=== PATIENT | male | born 1955 | race Caucasian/White ===

== ENCOUNTER → 2017-01-04 | Day surgery (SDC) | payer OTHER ==
[~2017-01-04] MED LIST: AMLO5TAB22 PO; ASPI81TA82 PO; ATOR40TA PO; LACTATED RINGER'S 1000 ML INJ 1,000 ML ONE; METO25 PO; PROPOFOL 500 MG/50 ML BTL IV ONE
--- NOTE | 2017-01-04 09:54 | GIPROC ---
[facility] [address] [place], [address] COLONOSCOPY PROCEDURE REPORT EXAM DATE: 01/04/2017 PATIENT NAME: Vaughn Zuniga MR #: [id number] BIRTHDATE: 1955 ENDOSCOPIST: Ramonita Adair MD ORDER #: [id number] BREAK AND LOAD OPERATOR: Lynette Rocha RN STATUS: outpatient INDICATIONS: The patient is a 61 yr old male here for a colonoscopy due to high risk patient with personal history of colonic polyps PROCEDURE PERFORMED: Colonoscopy with biopsy MEDICATIONS: None and Per Anesthesia. PREP QUALITY: good PREP TYPE:Other: ESTIMATED BLOOD LOSS: None CONSENT: The patient understands the risks and benefits of the procedure and understands that these risks include, but are not limited to: sedation, allergic reaction, infection, perforation and/or bleeding. Alternative means of evaluation and treatment include, among others: physical exam, x-rays, and/or surgical intervention. The patient elects to proceed with this endoscopic procedure. medical equipment was checked for proper function. Hand hygiene and appropriate measures for infection prevention was taken. After the risks, benefits and alternatives of the procedure were thoroughly explained, Informed consent was verified, confirmed and timeout was successfully executed by the treatment team. A digital exam was performed, revealed internal hemorrhoids, and revealed an anal fissure-old, not active . The EC-[id number] ([id number]) endoscope was introduced through the anus and advanced to the cecum, which was identified by both the appendix and ileocecal valve. The instrument was then slowly withdrawn as the colon was fully examined. COLON FINDINGS: Prominent IC valve-biopsy diverticulosis sigmoid,descending internal hemorrhoids, fibrosed. Retroflexed views revealed internal hemorrhoids and Retroflexed views revealed medium internal hemorrhoids The scope was then completely withdrawn from the patient and the procedure terminated. PROCEDURE WITHDRAWAL TIME:6minutes ADVERSE EVENTS: There were no complications. IMPRESSIONS: 1. Prominent IC valve-biopsy diverticulosis sigmoid,descending internal hemorrhoids, fibrosed 2. Retroflexed views revealed internal hemorrhoids 3. Retroflexed views revealed medium internal hemorrhoids 4. Was performed 5. Revealed internal hemorrhoids-fibrosed 6. Revealed an anal fissure -old , not active RECOMMENDATIONS: 1. Await biopsy results. Biopsy results will not be ready for 7-10 days. If you don't hear from us in two weeks, call our office for results. 2. Benefiber 2 tsp daily 3. Probiotics from any [employer] or health food store 4. Yearly rectal exams 5. colorectal surgery evalutionnif desired for removal of fibrosed hemorrhoids RECALL: Return 3 years Colonoscopy Ramonita dAair MD eSigned: Ramonita Adair MD 01/04/2017 9:54 AM cc: Odalys Mon [facility] PATIENT NAME: Vaughn Zuniga MR#: [id number]
== END | disposition home or self-care (01) ==
LOC: ESDC 07:20
PROVIDERS: ATTEND Internal Medicine Gastroenterology
DX: Z12.11 Encounter for screening for malignant neoplasm of colon (principal); Z86.010 Personal history of colon polyps; K57.90 Diverticulosis of intestine, part unspecified, without perforation or abscess without bleeding; K64.8 Other hemorrhoids
CPT/HCPCS: 00810; 45380; 88305; J7120

== ENCOUNTER 2017-07-23 13:53 | Observation (INO) | payer OTHER ==
[2017-07-23] VITALS (10 sets, daily range): BP systolic 104–163; BP diastolic 70–88; PULSE 68–88; RESP 15–20; TEMP 98–98.5; O2SAT 94–100
[~2017-07-23] VITALS: Ht 180.3 cm; Wt 100.0 kg
[~2017-07-23 13:53] MED LIST changes: -LACTATED RINGER'S 1000 ML INJ 1,000 ML ONE; -PROPOFOL 500 MG/50 ML BTL IV ONE
[2017-07-23] MEDS ORDERED: SODIUM CHLORID 0.9% 500 ML INJ 500 ML IV ONE (14:15)
[2017-07-23] MEDS ORDERED: NITROGLYCERIN 2% OINT 1 GM PACKET TOP ONE (14:15)
[2017-07-23] MEDS ORDERED: SODIUM CHLORIDE 0.9% FLUSH 10 ML FLUSH IVF PRN (14:15)
[2017-07-23] MEDS ORDERED: METO25TA3 PO (14:19)
[2017-07-23] MEDS ORDERED: ASPI-516 CHEW (14:19)
[2017-07-23] MEDS ORDERED: ATOR40TA16 PO (14:19)
[2017-07-23] MEDS ORDERED: AMLO5TAB2 PO (14:19)
--- NOTE | 2017-07-23 14:31 | PD ---
HPI Chief Complaint: Chest Pain Time Seen by Provider: 14:02 Travel History International Travel<30 days: No Contact w/Intl Traveler<30days: No Traveled to known affect area: No History of Present Illness HPI The patient is a 61-year-old male who presents to the emergency department for chest pain. The patient states he developed chest discomfort 3 days ago described as tightness that is across the chest and radiates to the shoulders bilaterally. He also complains of some numbness to left upper extremity. The symptoms are moderate, worse with exertion, slightly alleviated at rest. He does have a history of coronary artery disease with previous stent placement in [place] as well as hypertension and hyperlipidemia. He denies any tobacco use currently, was smoking 1 cigar per week several years ago. He has a significant family history for heart disease in the family. 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 James. The chest pain is moderate, described as tightness, and radiates the shoulders bilaterally with numbness going down the left arm. He does note exertional symptoms, however, denies any diaphoresis, nausea, or vomiting. PFSH Past Medical History Blood Disorders: No Heart Rhythm Problems: No Cancer: No Cardiac Catheterization: Yes Cardiovascular Problems: Yes (X 1 STENT) High Cholesterol: Yes Congestive Heart Failure: No Coronary Artery Disease: Yes Diabetes: No Diminished Hearing: No Endocrine: No Genitourinary: No Hypertension: Yes Immune Disorder: No Musculoskeletal: No Neurologic: No Psychiatric: No Reproductive: No Respiratory: No Tetanus Vaccination: Never Vaccinated Influenza Vaccination: No Past Surgical History Coronary Artery Bypass Graft: No Coronary Stent: Yes (x1) Tonsillectomy: Yes Other Surgery: Yes (tonsils removed as a child) Family History Family Myocardial Infarction: Yes Social History Alcohol Use: Yes (daily 2-3 scotch, last night ) Tobacco Use: Yes (1 cigar a week ) Substance Use: No Allergies-Medications (Allergen,Severity, Reaction): Coded Allergies: No Known Allergies (Unverified , 01/21/15) Reported Meds & Prescriptions Reported Meds & Active Scripts Active Reported Atorvastatin (Atorvastatin Calcium) 40 Mg Tab 40 Mg PO HS Amlodipine (Amlodipine Besylate) 5 Mg Tab 5 Mg PO DAILY Aspirin 81 Mg Chew 81 Mg CHEW DAILY Metoprolol Tartrate 25 Mg Tab 25 Mg PO BID Review of Systems Except as stated in HPI: all other systems reviewed are Neg HENT: No: Lightheadedness Cardiovascular: Positive: Chest Pain or Discomfort, Dyspnea on exertion, No: Diaphoresis Respiratory: No: Shortness of Breath Gastrointestinal: No: Nausea, Vomiting, Abdominal Pain Musculoskeletal: No: Weakness Neurologic: No: Dizziness, Focal Abnormalities Physical Exam Narrative GENERAL: Awake, alert, pleasant 61-year-old male who appears his stated age and is in no acute respiratory distress. SKIN: Focused skin assessment warm/dry. HEAD: Atraumatic. Normocephalic. EYES: Pupils equal and round. No scleral icterus. No injection or drainage. ENT: No nasal bleeding or discharge. Mucous membranes pink and moist. NECK: Trachea midline. No JVD. CARDIOVASCULAR: Regular rate and rhythm. No murmur appreciated. RESPIRATORY: No accessory muscle use. Clear to auscultation. Breath sounds equal bilaterally. GASTROINTESTINAL: Abdomen soft, non-tender, nondistended. No rebound tenderness. MUSCULOSKELETAL: No obvious deformities. No clubbing. No cyanosis. No edema. NEUROLOGICAL: Awake and alert. No obvious cranial nerve deficits. Motor grossly within normal limits. Normal speech. Nonfocal. PSYCHIATRIC: Appropriate mood and affect; insight and judgment normal. Data Data Last Documented VS Vital Signs Date Time Temp Pulse Resp B/P (MAP) Pulse Ox O2 Delivery O2 Flow Rate FiO2 07/23/17 14:22 97 Nasal Cannula 2.00 07/23/17 14:19 141/83 (102) 07/23/17 14:19 77 15 07/23/17 13:58 98.0 Orders Orders Electrocardiogram (07/23/17 14:10) Ckmb (Isoenzyme) Profile (07/23/17 14:10) Complete Blood Count With Diff (07/23/17 14:10) Comprehensive Metabolic Panel (07/23/17 14:10) Magnesium (Mg) (07/23/17 14:10) Prothrombin Time / Inr (Pt) (07/23/17 14:10) Act Partial Throm Time (Ptt) (07/23/17 14:10) Troponin I (07/23/17 14:10) Chest, Single Ap (07/23/17 14:10) Ecg Monitoring (07/23/17 14:10) Bilateral Bp Monitoring (07/23/17 14:10) Iv Access Insert/Monitor (07/23/17 14:10) Oximetry (07/23/17 14:10) Oxygen Administration (07/23/17 14:10) Nitroglycerin 2% Oint (Nitroglycerin 2% (07/23/17 14:15) Sodium Chloride 0.9% Flush (Ns Flush) (07/23/17 14:15) Sodium Chlorid 0.9% 500 Ml Inj (Ns 500 M (07/23/17 14:15) Admit Order (Ed Use Only) (07/23/17 15:59) Labs Laboratory Tests Test 07/23/17 14:30 White Blood Count 6.3 TH/MM3 Red Blood Count 4.77 MIL/MM3 Hemoglobin 15.7 GM/DL Hematocrit 44.7 % Mean Corpuscular Volume 93.8 FL Mean Corpuscular Hemoglobin 33.0 PG Mean Corpuscular Hemoglobin Concent 35.2 % Red Cell Distribution Width 13.2 % Platelet Count 114 TH/MM3 Mean Platelet Volume 10.2 FL Neutrophils (%) (Auto) 54.4 % Lymphocytes (%) (Auto) 31.2 % Monocytes (%) (Auto) 11.0 % Eosinophils (%) (Auto) 2.4 % Basophils (%) (Auto) 1.0 % Neutrophils # (Auto) 3.4 TH/MM3 Lymphocytes # (Auto) 2.0 TH/MM3 Monocytes # (Auto) 0.7 TH/MM3 Eosinophils # (Auto) 0.2 TH/MM3 Basophils # (Auto) 0.1 TH/MM3 CBC Comment DIFF FINAL Differential Comment Prothrombin Time 10.4 SEC Prothromb Time International Ratio 1.0 RATIO Activated Partial Thromboplast Time 23.4 SEC Blood Urea Nitrogen 10 MG/DL Creatinine 0.67 MG/DL Random Glucose 111 MG/DL Total Protein 7.6 GM/DL Albumin 3.8 GM/DL Calcium Level 8.9 MG/DL Magnesium Level 1.6 MG/DL Alkaline Phosphatase 61 U/L Aspartate Amino Transf (AST/SGOT) 88 U/L Alanine Aminotransferase (ALT/SGPT) 87 U/L Total Bilirubin 0.7 MG/DL Sodium Level 139 MEQ/L Potassium Level 3.6 MEQ/L Chloride Level 103 MEQ/L Carbon Dioxide Level 24.7 MEQ/L Anion Gap 11 MEQ/L Estimat Glomerular Filtration Rate 120 ML/MIN Total Creatine Kinase 65 U/L Troponin I LESS THAN 0.02 NG/ML MDM Medical Decision Making Medical Screen Exam Complete: Yes Emergency Medical Condition: Yes Medical Record Reviewed: Yes Interpretation(s) EKG reveals normal sinus rhythm with a rate of 76. Left axis deviation. Laboratory Tests Test 07/23/17 14:30 White Blood Count 6.3 TH/MM3 Red Blood Count 4.77 MIL/MM3 Hemoglobin 15.7 GM/DL Hematocrit 44.7 % Mean Corpuscular Volume 93.8 FL Mean Corpuscular Hemoglobin 33.0 PG Mean Corpuscular Hemoglobin Concent 35.2 % Red Cell Distribution Width 13.2 % Platelet Count 114 TH/MM3 Mean Platelet Volume 10.2 FL Neutrophils (%) (Auto) 54.4 % Lymphocytes (%) (Auto) 31.2 % Monocytes (%) (Auto) 11.0 % Eosinophils (%) (Auto) 2.4 % Basophils (%) (Auto) 1.0 % Neutrophils # (Auto) 3.4 TH/MM3 Lymphocytes # (Auto) 2.0 TH/MM3 Monocytes # (Auto) 0.7 TH/MM3 Eosinophils # (Auto) 0.2 TH/MM3 Basophils # (Auto) 0.1 TH/MM3 CBC Comment DIFF FINAL Differential Comment Prothrombin Time 10.4 SEC Prothromb Time International Ratio 1.0 RATIO Activated Partial Thromboplast Time 23.4 SEC Blood Urea Nitrogen 10 MG/DL Creatinine 0.67 MG/DL Random Glucose 111 MG/DL Total Protein 7.6 GM/DL Albumin 3.8 GM/DL Calcium Level 8.9 MG/DL Magnesium Level 1.6 MG/DL Alkaline Phosphatase 61 U/L Aspartate Amino Transf (AST/SGOT) 88 U/L Alanine Aminotransferase (ALT/SGPT) 87 U/L Total Bilirubin 0.7 MG/DL Sodium Level 139 MEQ/L Potassium Level 3.6 MEQ/L Chloride Level 103 MEQ/L Carbon Dioxide Level 24.7 MEQ/L Anion Gap 11 MEQ/L Estimat Glomerular Filtration Rate 120 ML/MIN Total Creatine Kinase 65 U/L Troponin I LESS THAN 0.02 NG/ML Last Impressions Chest X-Ray 07/23/17 1410 Signed Impressions: Service Date/Time: Sunday, July 23, 2017 14:18 - CONCLUSION: No acute disease. Janusz Lucio MD Differential Diagnosis Differential diagnosis includes acute coronary syndrome, deconditioning, cardiomyopathy, STEMI, GERD, esophageal spasm, pancreatitis. Narrative Course IV was established, labs are drawn and sent, and the patient was placed on cardiac telemetry monitoring and continuous pulse oximetry monitoring. EKG was ordered and interpreted. The patient already took aspirin at home, nitroglycerin ointment was applied to the chest wall. Chest x-ray was obtained. Chest x-ray is unremarkable. The patient's initial troponin is negative. The patient does have multiple risk factors including hypertension, hyperlipidemia, and CAD with previous stent placement. Therefore, patient will be a 23 hour observation to the chest pain center. The last nuclear medicine myocardial perfusion scan I can find was performed on January 22, 2015, negative , low risk, with the EF of 70% percent. However, patient does have increase in exertional symptoms and multiple risk factors, therefore, will be a 23 hour observation to chest pain center under Dr. Copeland. Patient is comfortable with this plan of care and disposition. Physician Communication Physician Communication The patient will be a 23 hour observation to the chest pain center for serial cardiac enzymes and further evaluation by cardiology. Diagnosis Primary Impression: Chest pain Qualified Codes: R07.9 - Chest pain, unspecified Admitting Information Admitting Physician Requests: Observation Condition: Stable Boogie Batista MD Jul 23, 2017 14:31
[2017-07-23 14:44] LABS: AUTOMATED NEUTROPHIL # 3.4 TH/MM3 (1.8-7.7); BASOPHIL # 0.1 TH/MM3 (0-0.2); EOSINOPHIL # 0.2 TH/MM3 (0-0.4); EOSINOPHIL % 2.4 % (0.0-4.0); HEMATOCRIT 44.7 % (39.0-51.0); HEMOGLOBIN 15.7 GM/DL (13.0-17.0); LYMPH % 31.2 % (9.0-44.0); MEAN CELL VOLUME 93.8 FL (80.0-100.0); MEAN CORPUSCULAR HGB CONC 35.2 % (32.0-36.0); MEAN PLATELET VOLUME 10.2 FL (7.0-11.0); MONOCYTE # 0.7 TH/MM3 (0-0.9); NEUT % 54.4 % (16.0-70.0); PLATELET COUNT 114 TH/MM3 (150-450); RED BLOOD COUNT 4.77 MIL/MM3 (4.50-5.90); RED CELL DISTRIBUTION WIDTH 13.2 % (11.6-17.2); WHITE BLOOD COUNT 6.3 TH/MM3 (4.0-11.0)
[2017-07-23 14:52] LABS: PROTHROMBIN TIME - PATIENT 10.4 SEC (9.8-11.6)
--- NOTE | 2017-07-23 14:54 | RADRPT ---
EXAM DATE/TIME: 07/23/2017 14:18 [place] COMPARISON: CHEST SINGLE AP, January 21, 2015, 21:17. INDICATIONS : Chest tightness. MEDICAL HISTORY : None. SURGICAL HISTORY : Cardiac stent. ENCOUNTER: Initial ACUITY: 1 day PAIN SCORE: 0/10 LOCATION: Chest, midline. FINDINGS: A single view of the chest demonstrates the lungs to be symmetrically aerated without evidence of mas s, infiltrate or effusion. The cardiomediastinal contours are unremarkable. Osseous structures are intact. CONCLUSION: No acute disease. Janusz Lucio MD on July 23, 2017 at 14:52 Board Certified Radiologist. This report was verified electronically.
[2017-07-23 15:06] LABS: ALBUMIN 3.8 GM/DL (3.4-5.0); AST (GOT) 88 U/L (15-37); BICARBONATE 24.7 MEQ/L (21.0-32.0); BLOOD UREA NITROGEN 10 MG/DL (7-18); CALCIUM 8.9 MG/DL (8.5-10.1); CHLORIDE 103 MEQ/L (98-107); CREATININE 0.67 MG/DL (0.60-1.30); GLOMERULAR FILTRATION RATE 120 ML/MIN (>89); GLUCOSE,RANDOM 111 MG/DL (74-106); MAGNESIUM 1.6 MG/DL (1.5-2.5); SODIUM (NA) 139 MEQ/L (136-145)
[2017-07-23 15:07] LABS: ALT (GPT) 87 U/L (12-78)
[2017-07-23 15:10] LABS: ALKALINE PHOSPHATASE 61 U/L (45-117); TOTAL BILIRUBIN ADULT 0.7 MG/DL (0.2-1.0); TOTAL PROTEIN 7.6 GM/DL (6.4-8.2); TROPONIN I LESS THAN 0.02 NG/ML (0.02-0.05)
[2017-07-23] MEDS ORDERED: IOHEXOL 350 MG/ML 100 ML BTL (for Cath Lab) OTHER ONE (16:04)
[2017-07-23] MEDS ORDERED: ACETAMINOPHEN 500 MG CPLT PO PRN (16:30)
[2017-07-23] MEDS ORDERED: ALPRAZolam 0.25 MG TAB PO PRN (16:30)
[2017-07-23] MEDS ORDERED: ONDANSETRON HCL 4 MG/2 ML VIAL IV PUSH PRN (16:30)
[2017-07-23] MEDS ORDERED: ACETAMINOPHEN/HYDROcodone 325 MG/7.5 MG TAB PO PRN (16:30)
--- NOTE | 2017-07-23 16:37 | HHI.HP ---
HPI Primary Care Physician Unknown Chief Complaint Chest pain History of Present Illness This is a 61-year-old male that presents to ED with history of CAD with a stent to the RCA in 2013 as well as having hypertension and hyperlipidemia that presents to ED for evaluation of chest discomfort. States that he has been having intermittent chest tightness across the chest for the past week. Has not found to be exertional related. States most strenuous thing he has done was some walking. Prior to yesterday and it happened 5 times over the past week each lasting about 10 minutes. He had no associated shortness of breath, nausea, or diaphoresis. Yesterday's discomfort began while he was at home watching television and was little bit more intense and lasted longer. States lasted about 30 minutes. He was not short of breath, nauseous, or diaphoretic. The discomfort recurred this morning, was more intense and lasted about an hour. The discomfort also radiated down the left arm. States these episodes of discomfort do not have symptoms similar to when eating the stent in 2013. He states that time he had a much more intense discomfort, he was short of breath, and he was diaphoretic. He has not had the symptoms recently. Currently denies discomfort in his chest. States he last saw his otr company driver about a year ago and had a 2D echo. Cannot recall having a stress test in the office. His last stress test here was in 2014 and was nonischemic. His last heart catheterization was at this hospital in 2013. The stent to the RCA was patent. There was about 25% proximal disease and 35% mid segment disease of the RCA. Left main, LAD, and circumflex were essentially normal. Review of Systems General: Patient denies fevers, chills, and recent travel. HEENT: Patient denies headache, sore throat, difficulty swallowing. Cardiovascular: Has the chest discomfort as mentioned above. Denies sensation of heart beating rapidly or irregularly. No syncope. Denies diaphoresis. Respiratory: Denies shortness of breath or inspirational chest discomfort. Denies coughing wheezing or hemoptysis. GI: Patient denies nausea, vomiting, diarrhea, abdominal pain, bloody stools. Musculoskeletal: Patient denies joint pain or edema. Denies calf pain or edema. Neurovascular: Patient denies numbness, tingling, weakness in extremities. Denies headache. Endocrine: Denies polyuria and polydipsia. Hematologic: Denies easy bruising. Skin: Denies rash or itching. Past Family Social History Allergies: Coded Allergies: No Known Allergies (Unverified , 01/21/15) Past Medical History CAD with stent of the RCA in 2013. Hypertension, hyperlipidemia. Denies diabetes. Tobacco abuse. Past Surgical History Cardiac catheterization with stenting of RCA in 2013. Left total knee replacement. Tonsillectomy. Reported Medications Reported Meds & Active Scripts Active Reported Atorvastatin (Atorvastatin Calcium) 40 Mg Tab 40 Mg PO HS Amlodipine (Amlodipine Besylate) 5 Mg Tab 5 Mg PO DAILY Aspirin 81 Mg Chew 81 Mg CHEW DAILY Metoprolol Tartrate 25 Mg Tab 25 Mg PO BID Active Ordered Medications Current Medications Medications (Trade) Dose Ordered Sig/Libby Route Start Time Stop Time Status Last Admin (NS Flush) 2 ml UNSCH PRN IVF 07/23/17 14:15 07/23/17 15:14 (Tylenol) 500 mg Q4H PRN PO 07/23/17 16:30 UNV ([place] 7.5-325 Mg) 1 tab Q4H PRN PO 07/23/17 16:30 UNV (Zofran Inj) 4 mg Q6H PRN IV PUSH 07/23/17 16:30 UNV Family History His father and brother had CAD. Social History Patient has been smoking about 1 cigar per week for the last 2 months, prior to that he would smoke 2-3 cigars per day for couple years. He quit smoking cigarettes 20-25 years ago. Prior to that he smoked 1 pack of cigarettes a day for 20 years. He has on average 2 drinks of scotch and soda at night and states he has so most of his adult life. Denies illicit drug use. 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 Physical Exam Vital Signs Vital Signs Date Time Temp Pulse Resp B/P (MAP) Pulse Ox O2 Delivery O2 Flow Rate FiO2 07/23/17 14:22 97 Nasal Cannula 2.00 07/23/17 14:19 141/83 (102) 07/23/17 14:19 77 15 141/83 (102) 07/23/17 14:13 79 15 141/80 (100) 97 Room Air 07/23/17 14:13 79 18 141/80 (100) 97 Room Air 07/23/17 13:58 98.0 88 16 163/88 (113) 100 Physical Exam GENERAL: This is a well-nourished, well-developed patient, in no apparent distress. Patient speaks in clear complete sentences. Patient is pleasant. HEENT: Head is atraumatic and normocephalic. Neck is supple without lymphadenopathy and trachea is midline. No JVD or carotid bruits. CARDIOVASCULAR: Regular rate and rhythm without murmurs, gallops, or rubs. RESPIRATORY: Clear to auscultation. Breath sounds equal bilaterally. No wheezes , rales, or rhonchi. Chest wall is nontender. No use of accessory muscles. GASTROINTESTINAL: Abdomen is nontender, nondistended. Abdomen soft. No obvious pulsatile mass or bruit. No CVA tenderness. Strong femoral pulses bilaterally. Normal bowel sounds in all quadrants. MUSCULOSKELETAL: Patient is moving upper and lower extremities freely. No calf tenderness or edema, no Homans sign. Strong pulses in upper and lower extremities. NEUROLOGICAL: Patient is alert and oriented. Cranial nerves 2-12 are grossly intact. No focal deficits and speech is clear. SKIN: No rash and turgor is normal. Laboratory Laboratory Tests Test 07/23/17 14:30 White Blood Count 6.3 Red Blood Count 4.77 Hemoglobin 15.7 Hematocrit 44.7 Mean Corpuscular Volume 93.8 Mean Corpuscular Hemoglobin 33.0 Mean Corpuscular Hemoglobin Concent 35.2 Red Cell Distribution Width 13.2 Platelet Count 114 Mean Platelet Volume 10.2 Neutrophils (%) (Auto) 54.4 Lymphocytes (%) (Auto) 31.2 Monocytes (%) (Auto) 11.0 Eosinophils (%) (Auto) 2.4 Basophils (%) (Auto) 1.0 Neutrophils # (Auto) 3.4 Lymphocytes # (Auto) 2.0 Monocytes # (Auto) 0.7 Eosinophils # (Auto) 0.2 Basophils # (Auto) 0.1 CBC Comment DIFF FINAL Differential Comment Prothrombin Time 10.4 Prothromb Time International Ratio 1.0 Activated Partial Thromboplast Time 23.4 Blood Urea Nitrogen 10 Creatinine 0.67 Random Glucose 111 Total Protein 7.6 Albumin 3.8 Calcium Level 8.9 Magnesium Level 1.6 Alkaline Phosphatase 61 Aspartate Amino Transf (AST/SGOT) 88 Alanine Aminotransferase (ALT/SGPT) 87 Total Bilirubin 0.7 Sodium Level 139 Potassium Level 3.6 Chloride Level 103 Carbon Dioxide Level 24.7 Anion Gap 11 Estimat Glomerular Filtration Rate 120 Total Creatine Kinase 65 Troponin I LESS THAN 0.02 Result Diagram: 07/23/17 1430 07/23/17 1430 Imaging Last 24 hours Impressions Chest X-Ray 07/23/17 1410 Signed Impressions: Service Date/Time: Sunday, July 23, 2017 14:18 - CONCLUSION: No acute disease. Janusz Lucio MD Course Initial EKG is sinus rhythm without significant ST segment depressions or elevations. Caprini VTE Risk Assessment Caprini VTE Risk Assessment: Mod/High Risk (score >= 2) Caprini Risk Assessment Model Point Value = 1 Point Value = 2 Point Value = 3 Point Value = 5 Age 41-60 Minor surgery BMI > 25 kg/m2 Swollen legs Varicose veins or History of unexplained or recurrent spontaneous Oral contraceptives or hormone replacement Sepsis (< 1 month) Serious lung disease, including pneumonia (< 1 month) Abnormal pulmonary function Acute myocardial infarction Congestive heart failure (< 1 month) History of inflammatory bowel disease Medical patient at bed rest Age 61-74 Arthroscopic surgery Major open surgery (> 45 min) Laparoscopic surgery (> 45 min) Malignancy Confined to bed (> 72 hours) Immobilizing plaster cast Central venous access Age >= 75 History of VTE Family history of VTE Factor V Leiden Prothrombin [id number] Lupus anticoagulant Anticardiolipin antibodies Elevated serum homocysteine Heparin-induced thrombocytopenia Other congenital or acquired thrombophilia Stroke (< 1 month) Elective arthroplasty Hip, pelvis, or leg fracture Acute spinal cord injury (< 1 month) Prophylaxis Regimen Total Risk Factor Score Risk Level Prophylaxis Regimen 0-1 Low Early ambulation 2 Moderate Order ONE of the following: *Sequential Compression Device (SCD) *Heparin 5000 units SQ BID 3-4 Higher Order ONE of the following medications: *Heparin 5000 units SQ TID *Enoxaparin/Lovenox 40 mg SQ daily (WT < 150 kg, CrCl > 30 mL/min) *Enoxaparin/Lovenox 30 mg SQ daily (WT < 150 kg, CrCl > 10-29 mL/min) *Enoxaparin/Lovenox 30 mg SQ BID (WT < 150 kg, CrCl > 30 mL/min) AND/OR *Sequential Compression Device (SCD) 5 or more Highest Order ONE of the following medications: *Heparin 5000 units SQ TID (Preferred with Epidurals) *Enoxaparin/Lovenox 40 mg SQ daily (WT < 150 kg, CrCl > 30 mL/min) *Enoxaparin/Lovenox 30 mg SQ daily (WT < 150 kg, CrCl > 10-29 mL/min) *Enoxaparin/Lovenox 30 mg SQ BID (WT < 150 kg, CrCl > 30 mL/min) AND *Sequential Compression Device (SCD) Assessment and Plan Assessment and Plan * Chest pain: Patient will continue to have serial cardiac enzymes and EKGs for ruling out purposes. He will be seen by Dr. Fercho Copeland of cardiology in the chest pain center in the morning. Likely to have a Lexiscan in the morning if he rules out. Patient would be discharged home if the stress test is nonischemic with instructions to follow-up with his otr company driver Dr. James, I was unable to speak with his otr company driver as he has not on-call this weekend. Patient should return to ED for interval issues. * CAD: We will likely reassess with stress testing. Patient to continues medications. * Hyperlipidemia: Patient's AST and ALT are mildly elevated. He would need to discuss this with his physician. He also drinks alcohol regularly and should discontinue alcohol use. Possibly transaminase will normalize however he will need to have this reassessed and if continues to elevate that may need to discuss statin therapy. * Elevated LFTs: Patient admits drinking alcohol regularly. Needs to discontinue alcohol abuse. He also is on statin therapy. Needs discuss this with his physician. * Hypertension: Continue medication. * Tobacco abuse: Patient has been counseled importance of no longer smoking a cigar. Patient is stable at this time. He is agreeable to this plan. Malik Linn Jul 23, 2017 16:37
[2017-07-23 18:30] LABS: TROPONIN I LESS THAN 0.02 NG/ML (0.02-0.05)
[2017-07-23] MEDS ORDERED: ATORVASTATIN 40 MG TAB PO SCH (21:00)
[2017-07-23] MEDS: METOPROLOL TARTRATE 25 MG TAB PO SCH (21:31)
[2017-07-23 23:51] LABS: TROPONIN I LESS THAN 0.02 NG/ML (0.02-0.05)
[2017-07-24 04:03] VITALS: BP 117/68; PULSE 67; RESP 17; TEMP 98.6; O2SAT 93
[2017-07-24 07:12] VITALS: PULSE 62
[2017-07-24 07:28] VITALS: BP 154/83; PULSE 69; RESP 16; TEMP 98; O2SAT 95
[2017-07-24] MEDS ORDERED: NITROGLYCERIN 0.4 MG SL 25 TABS/BTL SL ONE (07:31)
[2017-07-24 07:44] VITALS: O2SAT 96
--- NOTE | 2017-07-24 07:52 | PD.CARD.PN ---
Subjective Subjective Remarks Upon entering room, reporting fairly constant chest tightness with mild dyspnea. No associated symptoms nausea or diaphoresis. Objective Medications Current Medications Medications (Trade) Dose Ordered Sig/Libby Route Start Time Stop Time Status Last Admin (NS Flush) 2 ml UNSCH PRN IVF 07/23/17 14:15 07/23/17 15:14 (Tylenol) 500 mg Q4H PRN PO 07/23/17 16:30 (Plaza 7.5-325 Mg) 1 tab Q4H PRN PO 07/23/17 16:30 (Zofran Inj) 4 mg Q6H PRN IV PUSH 07/23/17 16:30 (Aspirin) 325 mg DAILY PO 07/24/17 09:00 (Xanax) 0.25 mg Q8H PRN PO 07/23/17 16:30 (Norvasc) 5 mg DAILY PO 07/24/17 09:00 (Lipitor) 40 mg HS PO 07/23/17 21:00 07/23/17 21:31 (Lopressor) 25 mg BID PO 07/23/17 21:00 07/23/17 21:31 Vital Signs / I&O Vital Signs Date Time Temp Pulse Resp B/P (MAP) Pulse Ox O2 Delivery O2 Flow Rate FiO2 07/24/17 07:44 96 21 07/24/17 07:28 98.0 69 16 154/83 (106) 95 07/24/17 07:12 62 07/24/17 04:03 98.6 67 17 117/68 (84) 93 07/23/17 23:16 98.2 76 17 122/82 (95) 94 07/23/17 20:25 98.5 76 17 142/70 (94) 97 07/23/17 18:26 74 07/23/17 18:09 98.1 76 20 135/74 (94) 100 07/23/17 17:41 68 15 99 Nasal Cannula 2.00 07/23/17 17:00 68 18 104/71 (82) 99 Nasal Cannula 2.00 07/23/17 16:00 74 17 130/77 (94) 99 Nasal Cannula 2.00 07/23/17 15:00 74 18 138/73 (94) 100 Nasal Cannula 2.00 07/23/17 14:22 97 Nasal Cannula 2.00 07/23/17 14:19 141/83 (102) 07/23/17 14:19 77 15 141/83 (102) 07/23/17 14:15 99 Nasal Cannula 2.00 07/23/17 14:13 79 15 141/80 (100) 97 Room Air 07/23/17 14:13 79 18 141/80 (100) 97 Room Air 07/23/17 13:58 98.0 88 16 163/88 (113) 100 Physical Exam GENERAL: Alert WN, WD, NAD, pleasant, male HEAD: NC, AT CV: RRR, without murmur, rub, gallop, no JVD, S1-S2 no S3-S4. RESP: Clear lungs throughout bilateral, no crackles, wheeze, rhonchi, symmetrical chest rise, nonlabored, able to speak in full sentences PSYCH: A+O x3, pleasant affect, appropriate speech, mood, insight and judgment SKIN: Normal turgor, normal texture Laboratory Laboratory Tests Test 07/23/17 14:30 07/23/17 17:30 07/23/17 23:00 White Blood Count 6.3 TH/MM3 Red Blood Count 4.77 MIL/MM3 Hemoglobin 15.7 GM/DL Hematocrit 44.7 % Mean Corpuscular Volume 93.8 FL Mean Corpuscular Hemoglobin 33.0 PG Mean Corpuscular Hemoglobin Concent 35.2 % Red Cell Distribution Width 13.2 % Platelet Count 114 TH/MM3 Mean Platelet Volume 10.2 FL Neutrophils (%) (Auto) 54.4 % Lymphocytes (%) (Auto) 31.2 % Monocytes (%) (Auto) 11.0 % Eosinophils (%) (Auto) 2.4 % Basophils (%) (Auto) 1.0 % Neutrophils # (Auto) 3.4 TH/MM3 Lymphocytes # (Auto) 2.0 TH/MM3 Monocytes # (Auto) 0.7 TH/MM3 Eosinophils # (Auto) 0.2 TH/MM3 Basophils # (Auto) 0.1 TH/MM3 CBC Comment DIFF FINAL Differential Comment Prothrombin Time 10.4 SEC Prothromb Time International Ratio 1.0 RATIO Activated Partial Thromboplast Time 23.4 SEC Blood Urea Nitrogen 10 MG/DL Creatinine 0.67 MG/DL Random Glucose 111 MG/DL Total Protein 7.6 GM/DL Albumin 3.8 GM/DL Calcium Level 8.9 MG/DL Magnesium Level 1.6 MG/DL Alkaline Phosphatase 61 U/L Aspartate Amino Transf (AST/SGOT) 88 U/L Alanine Aminotransferase (ALT/SGPT) 87 U/L Total Bilirubin 0.7 MG/DL Sodium Level 139 MEQ/L Potassium Level 3.6 MEQ/L Chloride Level 103 MEQ/L Carbon Dioxide Level 24.7 MEQ/L Anion Gap 11 MEQ/L Estimat Glomerular Filtration Rate 120 ML/MIN Total Creatine Kinase 65 U/L 56 U/L 53 U/L Troponin I LESS THAN 0.02 NG/ML LESS THAN 0.02 NG/ML LESS THAN 0.02 NG/ML Imaging Last 24 hours Impressions Chest X-Ray 07/23/17 1410 Signed Impressions: Service Date/Time: Sunday, July 23, 2017 14:18 - CONCLUSION: No acute disease. Janusz Lucio MD Assessment and Plan Assessment and Plan #1 Chest pain-admitted to chest pain center. Ruled out 3 sets of EKGs and cardiac enzymes overnight. Seen and evaluated by Dr. Fercho Copeland. Due to concerning chest discomfort, Dr. Copeland called patient's precast worker, Dr. James to make aware of presenting symptoms and admission to [facility]. Nitro SLx1 dose given at this time, quickly resolving symptoms. While awaiting return call from Dr. James, notified by RN patient's chest discomfort returned. Second Nitro SL tablet given. At this time, Dr. Copeland called on-call precast worker, Dr. Villanueva for possible catheterization today. Nitro paste 1 inch now, discussed with RN. Plan of care also discussed with patient. Linh Keller Jul 24, 2017 07:52
[2017-07-24] MEDS: METOPROLOL TARTRATE 25 MG TAB PO SCH (08:17)
[2017-07-24] MEDS ORDERED: NITROGLYCERIN 2% OINT 1 GM PACKET TOPICAL ONE (08:30)
[2017-07-24] MEDS ORDERED: ASPIRIN 325 MG TAB PO SCH (09:00)
[2017-07-24] MEDS ORDERED: amLODIPine BESYLATE 5 MG TAB PO SCH (09:00)
--- NOTE | 2017-07-24 10:00 | HHI.PR ---
Subjective Remarks in no acute distress. says that chest pain improved after nitro-patch. awaiting cardiac cath. Objective Vitals Vital Signs Date Time Temp Pulse Resp B/P (MAP) Pulse Ox O2 Delivery O2 Flow Rate FiO2 07/24/17 07:44 96 21 07/24/17 07:28 98.0 69 16 154/83 (106) 95 07/24/17 07:12 62 07/24/17 04:03 98.6 67 17 117/68 (84) 93 07/23/17 23:16 98.2 76 17 122/82 (95) 94 07/23/17 20:25 98.5 76 17 142/70 (94) 97 07/23/17 18:26 74 07/23/17 18:09 98.1 76 20 135/74 (94) 100 07/23/17 17:41 68 15 99 Nasal Cannula 2.00 07/23/17 17:00 68 18 104/71 (82) 99 Nasal Cannula 2.00 07/23/17 16:00 74 17 130/77 (94) 99 Nasal Cannula 2.00 07/23/17 15:00 74 18 138/73 (94) 100 Nasal Cannula 2.00 07/23/17 14:22 97 Nasal Cannula 2.00 07/23/17 14:19 141/83 (102) 07/23/17 14:19 77 15 141/83 (102) 07/23/17 14:15 99 Nasal Cannula 2.00 07/23/17 14:13 79 15 141/80 (100) 97 Room Air 07/23/17 14:13 79 18 141/80 (100) 97 Room Air 07/23/17 13:58 98.0 88 16 163/88 (113) 100 Result Diagram: 07/23/17 1430 07/23/17 1430 Imaging Last Impressions Chest X-Ray 07/23/17 1410 Signed Impressions: Service Date/Time: Sunday, July 23, 2017 14:18 - CONCLUSION: No acute disease. Janusz Lucio MD Objective Remarks GENERAL: This is a well-nourished, well-developed patient, in no apparent distress. CARDIOVASCULAR: Regular rate and regular rhythm without murmurs, gallops, or rubs. RESPIRATORY: Clear to auscultation. Breath sounds equal bilaterally. No wheezes , rales, or rhonchi. GASTROINTESTINAL: Abdomen soft, non-tender, nondistended. Normal, active bowel sounds MUSCULOSKELETAL: Extremities without clubbing, cyanosis, or edema. NEURO: Alert & Oriented x4 to person, place, time, situation. Moves all ext x4 Medications and IVs Inpatient Medications Acetaminophen (Tylenol) 500 mg Q4H PRN PO HEADACHE; Start 07/23/17 at 16:30 Acetaminophen/ Hydrocodone Bitart ([place] 7.5-325 Mg) 1 tab Q4H PRN PO PAIN SCALE 1 TO 7; Start 07/23/17 at 16:30 Alprazolam (Xanax) 0.25 mg Q8H PRN PO ANXIETY; Start 07/23/17 at 16:30 Amlodipine Besylate (Norvasc) 5 mg DAILY PO Last administered on 07/24/17at 08: 17; Start 07/24/17 at 09:00 Aspirin (Aspirin) 325 mg DAILY PO Last administered on 07/24/17at 08:17; Start 07/24/17 at 09:00 Atorvastatin Calcium (Lipitor) 40 mg HS PO Last administered on 07/23/17at 21:31 ; Start 07/23/17 at 21:00 Metoprolol Tartrate (Lopressor) 25 mg BID PO Last administered on 07/24/17at 08: 17; Start 07/23/17 at 21:00 Nitroglycerin (Nitroglycerin 2% Oint) 1 inch ONCE ONCE TOPICAL Last administered on 07/24/17at 08:16; Start 07/24/17 at 08:30; Stop 07/24/17 at 08:31 ; Status DC Ondansetron HCl (Zofran Inj) 4 mg Q6H PRN IV PUSH NAUSEA; Start 07/23/17 at 16: 30 Sodium Chloride 500 ml @ 500 mls/hr ONCE ONCE IV Last administered on at 15:13; Start 07/23/17 at 14:15; Stop 07/23/17 at 15:14; Status DC Sodium Chloride (NS Flush) 2 ml UNSCH PRN IVF FLUSH AFTER USING IV ACCESS Last administered on 07/23/17at 15:14; Start 07/23/17 at 14:15 A/P Assessment and Plan A/P - chest pain with history of CAD serial troponin negative- cardiology consulted and plan for cardiac cath today. continue aspirin, statin and BB. -hypertension; continue amlodipine and metoprolol- will monitor and adjust the regimen as needed. Discharge Planning awaiting cardiac cath and cardiology recommendations. Susi Alberto MD Jul 24, 2017 10:00
[2017-07-24] MEDS ORDERED: HEPARIN-NS/PF FLUSH BAG 2,000 ML IV FLUSH ONE (10:40)
[2017-07-24] MEDS ORDERED: VERAPAMIL HCL 5 MG/2 ML VIAL ONE (10:41)
[2017-07-24] MEDS ORDERED: HEPARIN SODIUM - IV 10,000 UNITS/10 ML VIAL ONE (10:41)
[2017-07-24] MEDS ORDERED: MIDAZOLAM HCL 2 MG/2 ML VIAL ONE (10:41)
--- NOTE | 2017-07-24 10:41 | EKG ---
Date Performed: 07/23/2017 Time Performed: 23:16:58 PTAGE: 61 years EKG: Sinus rhythm MARKED LEFT AXIS DEVIATION PATTERN CONSISTENT WITH PULMONARY DISEASE MODERATE INTRAVENTRICULAR CONDU CTION DELAY MINIMAL VOLTAGE CRITERIA FOR LVH, CONSIDER NORMAL VARIANT ABNORMAL ECG PREVIOUS TRACING : 07/23/2017 17.37 Since previous tracing, no significant change noted DOCTOR: Fercho Copeland Interpretating Date/Time 07/24/2017 10:39:11
--- NOTE | 2017-07-24 10:42 | EKG ---
Date Performed: 07/23/2017 Time Performed: 17:37:04 PTAGE: 61 years EKG: Sinus rhythm BORDERLINE RIGHT AXIS DEVIATION MODERATE INTRAVENTRICULAR CONDUCTION DELAY BORDERLINE ECG PREVIOUS TRACING : 07/23/2017 14.10 Since previous tracing, no significant change noted DOCTOR: Fercho Copeland Interpretating Date/Time 07/24/2017 10:39:30
--- NOTE | 2017-07-24 10:42 | EKG ---
Date Performed: 07/23/2017 Time Performed: 14:10:57 PTAGE: 61 years EKG: Sinus rhythm MARKED LEFT AXIS DEVIATION MODERATE INTRAVENTRICULAR CONDUCTION DELAY ABNORMAL ECG NO PREVIOUS TRACING DOCTOR: Fercho Copeland Interpretating Date/Time 07/24/2017 10:39:37
[2017-07-24] MEDS ORDERED: LIDOCAINE HCL 1% PF 30 ML VIAL ONE (10:53)
[2017-07-24] MEDS ORDERED: ADENOSINE STRESS TEST INJ 90 MG/30 ML VIAL ONE (11:38)
[2017-07-24] MEDS ORDERED: MISC INFORMATION XX ONE (12:15)
--- NOTE | 2017-07-24 12:16 | CATHPROC ---
[employer] HIS Report Study Information Study Number Admission Scheduled Start Study Start [id number] Jul 23 2017 4:03PM 07/24/2017 Jul 24 2017 10:01AM [facility] Cardiac Catheterization Admit Source Facility Department Emergency department [facility] - [employer] Physician and Clinical Staff Initial Az Soares Scenery Builder Nilson Vazquez RN Recorder Tiana Garnett BSN Scrub Hostsilas, Gumaro,RT(R) Procedures Performed Procedure Location (Site) Vessel Name Coronary Angiograms RCA Right Coronary L Heart Cath Wire insertion Radial (right) Radial Art. Equipment Time Asbestos Microscopist Description Size Mfg Part Number Used/Scraped TRANSDUCER, TRUWAVE [id number] 10:51 PAIZ BARRETT * Used W/STOCKCOCK *[id number] *[id number] 10:51 [employer] PACK, CCL CUSTOM * Used *[id number] 10:51 [employer] SUPPORT, ARTERIAL ADULT 18929 *[id number] Used [id number] 10:57 [employer] JR 4.0 DXTERITY CATHETER FR 5 Used *[id number] 11:35 [employer]/AVE EBU 3.5 Z2 GUIDE CATHETER FR 6 Used *[id number] BAND, RADIAL COMPRESSION TR [id number] 11:52 [employer] MEDICAL 29CM Used LARGE 29 *[id number] 11:36 [employer] PACK, ANGIOPLASTY * [id number] Used [id number] 10:51 [employer] MEDICAL WIRE, EXCHANGE 260CM 3MMJ 260CM Used *[id number] 10:51 NAMIC MANIFOLD, 4 PORT * Used *[id number] 10:51 [employer] OMNIPAQUE, 350 MG, 150ML 150ML [id number] Used [id number] 10:51 [employer] MEDICAL BLANKET,WARM AIR CCL * Used *[id number] SHEATH, FR6 TRANSRADIAL [id number] 10:51 [employer] MEDICAL FR 6 Used SLENDER 10CM *[id number] 11:35 [employer] PRIME WIRE, VERRATA 185CM 185CM 26007 *[id number] Used Equipment Model, Serial, Lot Number and Expiration Data Description Model Number Serial Number Lot Number Expiration Date JR 4.0 DXTERITY CATHETER [id number] 01-20-2020 PRIME WIRE, VERRATA 185CM [id number] 06-07-2020 History: Current Medications Medication Dosage/Unit Route Frequency Last Date/Time Taken ASA 325 mg 07/24/2017 Statins (any) 07/23/2017 Beta Mi 07/24/2017 LISINOPRIL 07/24/2017 History: Allergies Allergy Reaction No Known Allergies History: Risk Factors Family History of Hypertension Dyslipidemia Previous ME Previous Heart Failure Premature CAD Yes Yes Yes No No Prior Valve Prior PCI Prior PCIDate Prior CABG Surgery No Yes 04/10/2012 No Cerebrovascular Peripheral Artery Chronic Lung On Dialysis Diabetes Disease Disease Disease No No No No No History: Symptoms/Diagnosis Selection Items Chest pain History: Stress Tests Stress or Imaging Studies Performed No History: ME/CV Data Previous Cath Date 04/10/2017 History: Other Current Smoker Method Quit Packs a Day Years Used Pack Years No Cigarettes 25 Years Ago 1 20 20 Labs Hgb (g/dl) Hct (%) WBC (l/cumm) Platelets (thousands) 11.60-17.00 35.00-51.00 4.00-11.00 150.00-450.00 15.7 44.7 6.3 114 Glucose (mg/dl) BUN (mg/dl) Creatinine (mg/dl) BUN:Creatinine (1:x) 74.00-106.00 7.00-18.00 0.50-1.30 10.00-20.00 111 10 0.6 16.7 Na (meq/l) K (meq/l) 136.00-145.00 3.50-5.10 139 3.6 INR (PTT:PT) 0.90-1.10 1 Troponin I (ng/ml) CPK (u/l) CPK-MB (ng/ML) 0.02-0.05 26.00-308.00 0.50-3.60 0.02 53 Not Drawn Medication Medication Total Dose (Bolus/Oral) Medication Total Dosage/Unit 1% XYLOCAINE 5 mL FENTANYL 25 mcg HEPARIN 6000 units RADIAL COCKTAIL 5 mL (Bolus) VERSED 0.5 mg Medications (Bolus/Oral) Medication Time Given Dosage/Unit Administered By Reason VERSED 07/24/2017 11:16:05 AM 0.5 mg Nilson Vazquez 0.5 mg VERSED given in lab by Nilson Vazquez RN in Right Antecubital via Peripheral IV. Ordered by Az Lee FENTANYL 07/24/2017 11:17:15 AM 25 mcg Nilson Vazquez 25 mcg FENTANYL given in lab by Nilson Vazquez RN in Right Radial via Peripheral IV. Ordered by Az Abraham 1% XYLOCAINE 07/24/2017 11:18:27 AM 5 mL Az Villanueva 5 mL 1% XYLOCAINE given in lab by Az Villanueva in Right Radial via Subcutaneous. Ordered by Az Lee RADIAL COCKTAIL 07/24/2017 11:20:03 AM 5 mL (Bolus) Az Villanueva 5 mL (Bolus) RADIAL COCKTAIL given in lab by Az Villanueva via Radial. Using [Solution Name]. O rdered by Az Villanueva Reason: Ntg 200mcg Verapamil 2.5mg Heparin 4000U. HEPARIN 07/24/2017 11:39:02 AM 6000 units Nilson Vazquez 6000 units HEPARIN given in lab by Nilson Vazquez RN via Peripheral IV. Ordered by Az Villanueva Medication (Drip) Medication Time Given Dosage/Unit Concentration/Unit Diluent (ml) Solution IV Solutions 07/24/2017 10:42:37 AM 50 mL (IV) NaCl .9 IV Solutions given in lab by Nilson Vazquez RN via Peripheral IV. Pump/Drip Flow using NaCl .9 at KVO . Ordered by Az Villanueva Initial Case Assessment Cardiovascular HR Rhythm NIBP Chest Pain 69 sr 144/87 2 Edema Present Skin color Skin None Normal Warm Dry Circulatory - Right Pulses Dorsalis Pedis Femoral Radial 2 1 2 Scale (0,1,2,3,4,d) Circulatory - Left Pulses Dorsalis Pedis Femoral Radial 2 1 Scale (0,1,2,3,4,d) Circulatory - Lower Extremities Color Lower Right Color Lower Left Normal Normal Neurological State Oriented to time-place- Alert Moves all extremities person Respiration - General Respiration Rate SpO2 (%) O2 (lpm) (B/min) 17 96 0 Final Case Assessment Cardiovascular HR Rhythm NIBP Chest Pain 65 sr 137/76 2 Edema Present Skin color Skin None Normal Warm Dry Circulatory - Right Pulses Dorsalis Pedis Femoral Radial 2 1 2 Scale (0,1,2,3,4,d) Circulatory - Left Pulses Dorsalis Pedis Femoral Radial 2 1 Scale (0,1,2,3,4,d) Circulatory - Lower Extremities Color Lower Right Color Lower Left Normal Normal Neurological State Oriented to time-place- Alert Moves all extremities person Respiration - General Respiration Rate SpO2 (%) O2 (lpm) (B/min) 16 94 0 Chronological Log Time Study Chronological Log 10::27 Patient arrived via Bed. 10:31:30 Patient Name, D.O.B, / Armband Verified By R.N. 10:31:33 Consent signed by the physician and the patient and verified by the [employer] staff. 10:36:37 Verbal Stimulation=2 Physical Stimulation=2 Airway=2 Respiration=2 TOTAL=8. (0=absent, 1=li mited, 2=present) 10:36:47 Presedation assessment performed by [employer] RN. 10:36:51 Allens test performed on the right radial and ulnar artery. 10:36:54 Immediate Presedation assesment performed by physician. 10:36:55 Patient has been NPO for More than 6Hrs. 10:36:56 Skin Breakdown- none per patient Vitals capture started with the following parameters, Patient=Adult, Interval=5 min, Initial Pr oxxtcm=907 mmHg, 10:42:25 Deflation Rate=5 mmHg, Cuff placed on Right Ankle 10:42:30 A # 20 IV was noted in the Antecubital (right). Grade = 0 IV Solutions given in lab by Nilson Vazquez, JUVENCIO via Peripheral IV. Pump/Drip Flow using NaCl .9 at KVO. Ordered by 10:42:37 Az Villanueva 10:42:54 History and physical on the chart or being dictated. Assessment: Initial Case, HR=69 BPM, Rhythm=sr, QJXK=973/87 mmhg, Chest Pain=2, Edema=None, Col or=Normal, Skin = Warm, Dry Right Pulses: Ifeanyi Ped=2, Femoral=1, Radial=2 Left Pulses: Ifeanyi Ped=2, Femoral=1 10:42:57 Lower Right Extremities: Color=Normal Lower Left Extremities: Color=Normal Neurological: State=Alert, Ox3, ARITA Respiration: Resp=17 B/min, SpO2=96 %, O2=0 lpm 10:43:01 Reference ECG taken 10:43:39 HR=69 bpm, MZFQ=059/87 mmhg, SpO2=95 %, Resp=17 B/min, Pain=2, Deny=10, Urbina=2 10:48:06 HR=71 bpm, DMUH=015/81 mmhg, SpO2=94.0 %, Resp=13 B/min, Pain=2, Deny=10, Urbina=2 10:48:40 Right Radial and groin(s) prepped with 2% chlorhexidine, and draped after a 3 min. waiting time. 10:53:09 HR=69 bpm, QZTS=533/82 mmhg, SpO2=93.0 %, Resp=17 B/min, Pain=2, Deny=10, Urbina=2 10:54:24 Pressure channel 1 zeroed. 10:54:32 MD paged 10:58:06 HR=68 bpm, FANA=857/83 mmhg, SpO2=94.0 %, Resp=15 B/min, Pain=2, Deny=10, Urbina=2 11:00:55 MD responded 11:03:07 HR=70 bpm, FYNO=727/85 mmhg, SpO2=94.0 %, Resp=18 B/min, Pain=2, Deny=10, Urbina=2 11:08:06 HR=67 bpm, TNUM=686/83 mmhg, SpO2=93.0 %, Resp=14 B/min, Pain=2, Deny=10, Urbina=2 11:12:04 MD arrived. 11:13:03 HR=71 bpm, KNMM=207/100 mmhg, SpO2=96.0 %, Resp=8 B/min, Pain=2, Deny=10, Urbina=2 11:16:05 0.5 mg VERSED given in lab by Nilson Vazquez RN in Right Antecubital via Peripheral IV. Ord ered by Az Villanueva Time Out. Correct patient, correct procedure, correct physician, power injector not loaded with contrast with surgical 11:16:55 team present. Time Out Concurred by MD and individual staff in procedure. 11:17:13 Case Start 11:17:15 25 mcg FENTANYL given in lab by Nilson Vazquez, RN in Right Radial via Peripheral IV. Ordere d by Az Villanueva 11:18:10 HR=69 bpm, JCPG=762/88 mmhg, SpO2=93.0 %, Resp=16 B/min, Pain=2, Deny=10, Urbina=2 5 mL 1% XYLOCAINE given in lab by Az Villanueva in Right Radial via Subcutaneous. Ordered by Rich, ::27 Az Chris 11:19:48 Access site was Right Radial Artery. A SHEATH, FR6 TRANSRADIAL SLENDER 10CM FR 6 was advanced into the Radial (right) using the Perc utaneous 11:19:52 technique. 5 mL (Bolus) RADIAL COCKTAIL given in lab by Az Villanueva via Radial. Using [Solution Na me]. Ordered by 11:20:03 Az Villanueva Reason: Ntg 200mcg Verapamil 2.5mg Heparin 4000U. A JR 4.0 DXTERITY CATHETER FR 5 was advanced over a wire. OMNIPAQUE, 350 MG, 150ML 150ML was us ed for 11:20:51 injections. 11:23:07 HR=71 bpm, GMLU=359/75 mmhg, SpO2=91.0 %, Resp=16 B/min, Pain=2, Deny=10, Urbina=2 Recorded Pressure: LV, HR=71, Condition=Condition 1 11:23:07 (Left Ventricle) LV 123/3/18 Recorded Pressure: LV, Ao, HR=71, Condition=Condition 1 11:23:21 (Left Ventricle) LV 118/0/17, (Aorta) Ao 109/64/86 Recorded Pressure: Ao, HR=73, Condition=Condition 1 11:24:00 (Aorta) Ao 115/70/91 11:24:07 The RCA was injected and visualized at various angles. OMNIPAQUE, 350 MG, 150ML 150ML used . After removing the current catheter a JL 3.5 INFINITI CATHETER FR 5 was advanced over a WIRE, E XCHANGE 260CM 11:25:03 3MMJ 260CM. 11:28:06 HR=69 bpm, MYOR=697/76 mmhg, SpO2=93.0 %, Resp=18 B/min, Pain=2, Deny=10, Urbina=2 11:33:07 HR=70 bpm, YHCB=656/81 mmhg, SpO2=92.0 %, Resp=17 B/min, Pain=2, Deny=10, Urbina=2 After removing the current catheter a EBU 3.5 Z2 GUIDE CATHETER FR 6 was advanced over a WIRE, EXCHANGE 11:36:59 260CM 3MMJ 260CM. 11:38:08 HR=66 bpm, LZYQ=611/81 mmhg, SpO2=93.0 %, Resp=16 B/min, Pain=2, Deny=10, Urbina=2 11:39:02 6000 units HEPARIN given in lab by Nilson Vazquez, RN via Peripheral IV. Ordered by Az Villanueva 11:40:10 Pressure channel 1 zeroed. 11:41:25 A PRIME WIRE, VERRATA 185CM 185CM was inserted via Radial (right). 11:43:09 HR=67 bpm, UFCJ=613/77 mmhg, SpO2=93.0 %, Resp=16 B/min, Pain=2, Deny=10, Urbina=2 11:45:39 Flow Wire was was placed in the RAMUS Prox. The FFR measures ~FFR~ percent. The IFR measure s 1 Percent. 11:46:25 Flow Wire was was placed in the RAMUS Prox. The FFR measures ~FFR~ percent. The IFR measure s 1 Percent. 11:47:15 Flow Wire was was placed in the RAMUS Prox. The FFR measures ~FFR~ percent. The IFR measure s 0.99 Percent. 11:48:10 HR=68 bpm, AJDO=829/79 mmhg, SpO2=95.0 %, Resp=15 B/min, Pain=2, Deny=10, Urbina=2 11:48:14 The PRIME WIRE, VERRATA 185CM 185CM was removed. 11:49:12 Catheter(s) removed without difficulty 11:50:57 Case End Radial Compression Device Used. 10 mLs of air placed in BAND, RADIAL COMPRESSION TR LARGE 29 29 CM. Affected 11:52:20 hand 94 % O2 saturation. 11:53:09 HR=65 bpm, JHJP=224/76 mmhg, SpO2=94.0 %, Resp=18 B/min, Pain=2, Deny=10, Urbina=2 11:53:22 No case complications noted. 11:53:23 Cine recording checked. 11:53:48 Bedside Report will be given. 11:53:56 A Left Heart Cath was performed. Assessment: Final Case, HR=65 BPM, Rhythm=sr, FTOE=047/76 mmhg, Chest Pain=2, Edema=None, Color =Normal, Skin = Warm, Dry Right Pulses: Ifeanyi Ped=2, Femoral=1, Radial=2 Left Pulses: Ifeanyi Ped=2, Femoral=1 11:54:19 Lower Right Extremities: Color=Normal Lower Left Extremities: Color=Normal Neurological: State=Alert, Ox3, ARITA Respiration: Resp=16 B/min, SpO2=94 %, O2=0 lpm 11:54:47 Vitals capture stopped. 11:58:57 Patient moved to stretcher End Study - Contrast Media Used In Study Contrast Total Opened (mL) Total Used (mL) Total Wasted (mL) Omnipaque 90 90 0 End Study - Maximum Contrast Load Max Contrast Load (mL) 833.3 End Study - Radiation Exposure Fluoro Time (minutes) 5.6 End Study - Patient Disposition Complications Transferred To No [employer] Holding
--- NOTE | 2017-07-24 13:11 | MB ---
cc: Az Villanueva DO DATE: 07/24/2017 REASON FOR CONSULTATION: Unstable angina. HISTORY OF PRESENT ILLNESS: Vaughn Zuniga is a pleasant 61-year-old male who sees my partner, Dr. Corona, in the office, who presented to [facility] due to chest pain. He was evaluated in the [facility] by Dr. Copeland and felt that due to his typical nature of angina, he should be recommended cardiac catheterization. In seeing him, he states that over the past week or 2, he has been having chest pain in the center of his chest, lasting 5-10 minutes. He has no shortness of breath, nausea or diaphoresis with the episodes. As this was more intense and lasted a little longer, he felt that he should come to the emergency room. When being evaluated in the emergency room, he was seen by Dr. Copeland and during this, he had some chest pain. He was given a nitroglycerin, which did help to relieve the chest pain. PAST MEDICAL HISTORY: 1. Coronary artery disease. 2. Hypertension. 3. Hyperlipidemia. 4. History of tobacco abuse. PAST SURGICAL HISTORY: 1. Cardiac catheterization with stenting of his RCA in 2012 (done in [place]). 2. Cardiac catheterization (03/31/2014) with mild luminal irregularities throughout the left coronary system and 35% disease in the right coronary artery system with a patent RCA stent. 3. Left total knee replacement. 4. Tonsillectomy. ALLERGIES: NO KNOWN DRUG ALLERGIES. MEDICATIONS: 1. Lipitor 40 mg every night. 2. Metoprolol tartrate 25 mg b.i.d. 3. Norvasc 5 mg daily. 4. Aspirin 81 mg daily. FAMILY HISTORY: Denies sudden cardiac within the family. SOCIAL HISTORY: The patient smokes about a cigar per week for the last 2 months. Prior to this, he would smoke 2-3 cigars per day for a couple of years. He previously smoked cigarettes for 20 years or so. He drinks 2 drinks of scotch and soda at night. Denies illicit drug abuse. REVIEW OF SYSTEMS: Fourteen systems were reviewed including osteopathic pertinent positives and negatives above, otherwise negative. PHYSICAL EXAMINATION: VITAL SIGNS: Temperature 98.0, heart rate 69, blood pressure 154/83, respirations 16, pulse oximetry 95% on room air. GENERAL: The patient appears well, in no acute distress. Alert, awake and oriented x 3. HEENT: Extraocular muscles intact. Mucous membranes moist. NECK: Supple. No JVD at 45 degrees. No carotid bruits heard bilaterally. Carotid upstroke is brisk in nature. HEART: Regular rate and rhythm. Positive first and second heart sounds were noted. No murmurs, gallops or rubs. LUNGS: Clear to auscultation bilaterally. No wheezes, rales or rhonchi. ABDOMEN: Soft, nontender, nondistended. No organomegaly noted. EXTREMITIES: Show no clubbing, cyanosis or edema. Femoral and distal pulses intact bilaterally. NEUROLOGIC: No focal deficits. SKIN: Warm, dry and intact. OSTEOPATHIC: No kyphoscoliosis, lordosis or paraspinal tender points. LABORATORY DATA: Hemoglobin 15.7, hematocrit 44.7, platelets 114. Potassium 3.6, BUN 10, creatinine 0.67. Troponin negative x 3. Electrocardiogram (07/23/2017 at 2316), sinus rhythm, left axis deviation, minimal voltage criteria for LVH, possible normal variant. IMPRESSIONS: 1. Chest pain concerning for unstable angina, Danish anginal class III. 2. Coronary artery disease with a history of stenting of his right coronary artery. 3. Tobacco abuse. 4. Hypertension. 5. Hyperlipidemia. RECOMMENDATIONS: 1. Mr. Zuniga presented with what appears to be unstable angina and because of the typical nature of this, I agree with Dr. Copeland that he should forego a stress test and undergo cardiac catheterization. 2. Risks, benefits, and alternatives were discussed with the patient and he consented to such. 3. We will plan to check a 2-D echo to look at his overall left ventricular function, cardiac structure and possible valvulopathies. 4. I spoke to him for greater than 3 minutes about tobacco cessation. 5. Further recommendations will be made after coronary visualization. Thank you for allowing me to see Vaughn Zuniga. If there are any questions, please do not hesitate to call. Az Villanueva DO VGP/SB , 12:45 PM , 01:09 PM
--- NOTE | 2017-07-24 13:24 | MA ---
cc: Az Villanueva DO DATE: 07/24/2017 PROCEDURE PERFORMED: Left heart catheterization, coronary angiogram, moderate sedation 30 minutes, iFR ramus. PREPROCEDURE DIAGNOSIS: Unstable angina (Prydeinig anginal class III, on medications). 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 MEDICATIONS: Versed 0.5 mg, fentanyl 25 mcg, heparin 10,000 units, verapamil 2.5 mg, nitroglycerine 200 mcg. CONTRAST USED: 90 mL FLUOROSCOPY: 5.6 minutes. MODERATE SEDATION: 30 minutes. FRAILTY SCORE: 3. ESTIMATED BLOOD LOSS: 10 mL PROCEDURAL SUMMARY: Vaughn Zuniga is a pleasant 61-year-old male who sees my partner, Dr. James, in the office and presented to [facility] due to chest pain. Due to the typical nature of his chest pain, it was felt reasonable that he undergo cardiac catheterization and forego stress testing. Risks, benefits and alternatives were explained to him and he consented to such. He was brought to the lab and prepped in the usual sterile fashion. Right radial artery was accessed using a modified Seldinger technique and placement of a 5/6 Kiswahili slender sheath. This was easily aspirated and flushed. A JR4 was advanced over a J-wire to the ascending aorta and across the aortic valve for measurement of left ventricular pressure. This was pulled back across the aortic valve showing no significant gradient of aortic stenosis. JR4 was used for selective angiography of the right coronary artery system. This was exchanged out for a JL4, which was used for selective angiography of the left coronary artery system. Due to the moderate disease noted in the ramus, I felt that this needed to be further investigated. An EBU 3.5 guide was engaged into the left main. The patient was given additional heparin as an anticoagulant. A Verrata wire was advanced into the mid ramus and iFR was 1.0. At that time, I decided to take the wire into the distal ramus and the iFR was still 1.0, showing no significant coronary artery stenosis. Wire was removed and final angiogram shows no disruption of the coronary anatomy. EBU guide was removed over a wire. A radial band was placed over the arteriotomy site for hemostasis. The patient left the laboratory cureman cardiovascularly stable. FINDINGS: LEFT MAIN: Normal size vessel with no significant disease. It trifurcates into an LAD, ramus and circumflex. LAD: Normal size vessel with mild luminal irregularities throughout. It gives off 2 small diagonals. Distal to the diagonal, there is a significant tortuosity throughout the vessel and may cause some myocardial bridging. RAMUS: Normal size vessel with 30-40% lesion in the proximal portion. After this, the vessel does take significant tortuosity with possible mild myocardial bridging. LEFT CIRCUMFLEX: Normal size vessel with mild luminal irregularities throughout. RCA: Normal size vessel with a 30% lesion in the mid portion. Distal to the stent is widely patent with no significant disease. LVEDP: 17. IMPRESSION: 1. Unstable angina, possibly due to myocardial bridging more specifically of the left anterior descending than the ramus. 2. Mild coronary artery disease with previous stent patent. 3. Hypertension. 4. Hyperlipidemia. 5. Tobacco abuse. RECOMMENDATIONS: 1. Mr. Zuniga appears to have no significant disease which need to be intervened on at this time. 2. He does have some myocardial bridging specifically of the LAD and this may be what causes him to have his pain. 3. We will check a 2-D echo to look at his overall left ventricular function, cardiac structure and possible valvulopathies and if this is negative, will plan to discharge him home with followup with Dr. James. 4. I will increase his Norvasc to 10 mg daily as this will help with his blood pressure as well as coronary myocardial bridging. Thank you for allowing me to see Vaughn Zuniga. If there are any questions, please do not hesitate to call. DO MARTIN Turner/SB , 12:53 PM , 01:23 PM
[2017-07-24] MEDS ORDERED: amLODIPine BESYLATE 5 MG TAB PO ONE (14:30)
[2017-07-24] MEDS ORDERED: AMLO10 PO (15:25)
--- NOTE | 2017-07-24 17:03 | ECHRPT ---
Indication: CHEST PAIN CONCLUSIONS The left ventricular systolic function is normal with an estimated ejection fraction in the range of 55-60%. Mild concentric left ventricular hypertrophy. There is trace tricuspid valve regurgitation. BP: / HR: Rhythm: Sinus MEASUREMENTS (Male / Female) Normal Values Technical Quality:Fair 2D ECHO LV Diastolic Diameter PLAX 4.5 cm 4.2 - 5.9 / 3.9 - 5.3 cm LV Systolic Diameter PLAX 3.4 cm IVS Diastolic Thickness 1.3 cm 0.6 - 1.0 / 0.6 - 0.9 cm LVPW Diastolic Thickness 1.3 cm 0.6 - 1.0 / 0.6 - 0.9 cm LV Relative Wall Thickness 0.6 RV Internal Dim ED PLAX 3.3 cm LVOT Diameter 2.2 cm Aortic Root Diameter 3.1 cm LA Systolic Diameter LX 2.5 cm 3.0 - 4.0 / 2.7 - 3.8 cm M-MODE AV Cusp Separation MM 2.1 cm DOPPLER AV Peak Velocity 109.0 cm/s AV Peak Gradient 4.8 mmHg AV Mean Gradient 3.0 mmHg AV Velocity Time Integral 19.3 cm LVOT Peak Velocity 57.9 cm/s LVOT Peak Gradient 1.3 mmHg LVOT Velocity Time Integral 11.5 cm AV Area Cont Eq vti 2.3 cm AV Area Cont Eq pk 2.0 cm LV E' Lateral Velocity 7.1 cm/s LV E' Septal Velocity 8.2 cm/s TR Peak Velocity 216.0 cm/s TR Peak Gradient 18.7 mmHg Right Atrial Pressure 10.0 mmHg Pulmonary Artery Systolic Pressu 28.7 mmHg Right Ventricular Systolic Press 28.7 mmHg PV Peak Velocity 50.4 cm/s PV Peak Gradient 1.0 mmHg FINDINGS LEFT VENTRICLE Normal left ventricular size. Mild concentric left ventricular hypertrophy. The left ventricular systolic function is normal with an estimated ejection fraction in the range of 55-60%. There was limited left ventricular wall motion assessment due to poor endocardial visualization. RIGHT VENTRICLE Normal right ventricular size and systolic function. LEFT ATRIUM The left atrial size is normal. RIGHT ATRIUM The right atrial size is normal. ATRIAL SEPTUM The interatrial septum not well visualized. AORTA The aortic root and proximal ascending aorta are not well visualized. MITRAL VALVE Structurally normal mitral valve. No mitral valve stenosis or regurgitation. AORTIC VALVE Trileaflet aortic valve. No aortic valve stenosis or regurgitation. TRICUSPID VALVE Structurally normal tricuspid valve. There is trace tricuspid valve regurgitation. No tricuspid valve stenosis. PULMONARY VALVE No pulmonary valve regurgitation or stenosis. VESSELS The inferior vena cava was not well visualized. PERICARDIUM No pericardial effusion. Az Villanueva DO (Electronically Signed) Final Date:24 July 2017 17:02
== END 2017-07-24 17:58 | disposition home or self-care (01) ==
LOC: NEPC 13:53 → NEDA 16:03 → NEPHCDU 17:55 → HCIS 07-24 13:19
DX: R07.89 Other chest pain (principal); R06.02 Shortness of breath; R61 Generalized hyperhidrosis; R20.0 Anesthesia of skin; I25.110 Atherosclerotic heart disease of native coronary artery with unstable angina pectoris; E78.00 Pure hypercholesterolemia, unspecified; I10 Essential (primary) hypertension; R79.89 Other specified abnormal findings of blood chemistry; R94.31 Abnormal electrocardiogram [ECG] [EKG]; F17.290 Nicotine dependence, other tobacco product, uncomplicated; Z95.5 Presence of coronary angioplasty implant and graft; Z79.899 Other long term (current) drug therapy; Z79.82 Long term (current) use of aspirin; Z96.652 Presence of left artificial knee joint; Z82.49 Family history of ischemic heart disease and other diseases of the circulatory system
CPT/HCPCS: 71045; 80053; 82550; 83735; 84484; 85025; 85610; 85730; 93005; 93306; 93458; 93571; 96360; 99152; 99153; 99285; C1769; C1893; G0378; J1644; J2250; J3010; J7040; J0153; Q9967